=== PATIENT | female | born 1985 | race Caucasian/White ===

== ENCOUNTER → 2023-03-20 09:03 | Outpatient (BNVA) | payer MEDICAID, SELFPAY | PROVIDERS: PCP Family Medicine; Visit Provider Internal Medicine Rheumatology | DX: M31.4 Aortic arch syndrome [Takayasu]; Z79.899 Other long term (current) drug therapy; M19.90 Unspecified osteoarthritis, unspecified site; K57.90 Diverticulosis of intestine, part unspecified, without perforation or abscess without bleeding | CPT/HCPCS: 80076; 82565; 85025; 85651; 86140; 86200; 86431; 99205 ==

== ENCOUNTER → 2023-07-23 14:19 | Outpatient (BNVA) | payer MEDICAID, SELFPAY | PROVIDERS: PCP Nurse Practitioner Family; Visit Provider Internal Medicine Rheumatology | DX: M19.90 Unspecified osteoarthritis, unspecified site (principal); M31.4 Aortic arch syndrome [Takayasu]; K57.90 Diverticulosis of intestine, part unspecified, without perforation or abscess without bleeding | CPT/HCPCS: 36415; 80076; 82565; 85025; 85651; 86140; 99215 ==

== ENCOUNTER → 2025-03-31 12:54 | Outpatient (BNVA) | payer MEDICAID, SELFPAY | PROVIDERS: PCP Nurse Practitioner Family; Visit Provider Internal Medicine Rheumatology | DX: M31.4 Aortic arch syndrome [Takayasu] (principal); M19.90 Unspecified osteoarthritis, unspecified site; K57.90 Diverticulosis of intestine, part unspecified, without perforation or abscess without bleeding | CPT/HCPCS: 99215 ==

== ENCOUNTER → 2025-08-12 13:07 | Outpatient (BNVA) | payer MEDICAID, SELFPAY | PROVIDERS: PCP Nurse Practitioner Family; Visit Provider Internal Medicine Rheumatology | DX: M31.4 Aortic arch syndrome [Takayasu] (principal); Z79.899 Other long term (current) drug therapy; M13.80 Other specified arthritis, unspecified site; K57.90 Diverticulosis of intestine, part unspecified, without perforation or abscess without bleeding; Z90.710 Acquired absence of both cervix and uterus | CPT/HCPCS: 36415; 80076; 82306; 82565; 85025; 85651; 86140; 86480; 99214 ==